=== PATIENT | male | born 1945 | race Caucasian/White ===

== ENCOUNTER 2023-03-26 10:11 | Emergency (ER) | payer MEDICARE, SELFPAY ==
--- NOTE | ~2023-03-26 | CT_ITS ---
Non-contrast Head CT History: Headache COMPARISON: 02/25/2018 Technique: Axial non-contrast imaging of the brain was performed. Dose reduction technique was used on this scan by utilizing automated exposure control and iterative reconstruction technique. The dose -length product (DLP) was 605.33 mGy-cm. Findings: There is no evidence of intracranial hemorrhage, mass lesion, or acute infarct. Brain par enchyma appears normal. The ventricles and subarachnoid spaces are normal in size. The calvarium ap pears normal. The visualized paranasal sinuses and mastoid air cells are clear. Impression: No significant abnormality seen. Reviewed, dictated and finalized at location . Impression: No significant abnormality seen.
[2023-03-26 10:55] VITALS: BP 164/65; PULSE 80; RESP 20; TEMP 36.3; O2SAT 100
--- NOTE | 2023-03-26 12:37 | ED.HA ---
HPI - Headache General Chief Complaint: Headache Stated Complaint: left sided huston/hx subdural hematoma Time Seen by Provider: 03/26/23 11:09 History of Present Illness HPI Narrative: Patient is a 77-year-old male who presents ER with headache. Ongoing over the last week. Left-sided and throbbing. Worse with reading. Reports he is been reading news articles on his new flip phone. He has been told by an eye doctor in the past that he may need cataracts. He does have history of spontaneous subdural hemorrhage back in 2018 and has been concerned. At that time he had been seeing flashers and was having headache but he has no visual changes at this time. No trauma. He does continue to take a blood thinner due to his history of DVT. Related Data Allergies Allergy/AdvReac Type Severity Reaction Status Date / Time No Known Allergies Allergy Unknown Verified 01/17/18 04:37 Review of Systems Review of Systems: All systems reviewed & are unremarkable except as noted in HPI and below Constitutional: Constitutional: Denies chills, Denies fatigue and Denies fever(s) ENT: Denies dizziness, Denies nasal congestion and Denies sore throat Gastrointestinal: Gastrointestinal: Denies nausea and Denies vomiting Neurologic: Denies syncope, Reports headache(s), Denies focal weakness and Denies numbness PMFSH Past Medical History Medical History (Updated 03/26/23 @ 12:48 by Moi House MD) Atrial fibrillation DVT (deep venous thrombosis) Subdural hemorrhage Surgical History Surgical History (Updated 03/26/23 @ 12:47 by Moi House MD) History of surgery on lower extremity Exam Narrative: GENERAL: Well-appearing, well-nourished, and in no acute distress. HEAD: Normocephalic, atraumatic. EYES: PERRL and EOMI. ENT: Mucous membranes moist. Normal tympanic membranes bilaterally. NECK: Supple. CHEST: Clear to auscultation. No respiratory distress. HEART: Regular rate and rhythm. Normal peripheral pulses. EXTREMITIES: Normal range of motion. No edema. NEURO: Clear speech, no facial droop, ambulates with steady gait. Alert and oriented x3. PSYCH: Normal mood and affect. Course Course Emergency Course: Patient resting comfortably. Informed of results. Discharge home. Vital Signs Vital signs: Vital Signs Temperature 97.4 F L 03/26/23 10:55 Pulse Rate 80 03/26/23 10:55 Respiratory Rate 20 03/26/23 10:55 Blood Pressure 164/65 H 03/26/23 10:55 Pulse Oximetry 100 03/26/23 10:55 Oxygen Delivery Room Air 03/26/23 10:55 Temperature 97.4 F L 03/26/23 10:55 Pulse Rate 80 03/26/23 10:55 Respiratory Rate 20 03/26/23 10:55 Blood Pressure 164/65 H 03/26/23 10:55 Pulse Oximetry 100 03/26/23 10:55 Oxygen Delivery Room Air 03/26/23 10:55 MDM - Headache Imaging Data Radiologist's impression: ITS Impressions Head CT 03/26/23 11:44 Impression: No significant abnormality seen. Discharge Plan Discharge Clinical Impression: Generalized headache Patient Disposition: Home, Self-Care Condition: Stable Instructions: General Headache (ED) Additional Instructions: Return the ER if you lose consciousness, you have sudden onset weakness to an arm or leg, you have additional concerns. Follow-up with your eye doctor. Follow-up/Referrals: Julian,Rosendo Li MD [Primary Care Provider] - 1 Week
== END 2023-03-26 12:49 | disposition home or self-care (01) ==
PROVIDERS: Emergency Provider Emergency Medicine; PCP Internal Medicine
DX: R51.9 Headache, unspecified (principal); I48.91 Unspecified atrial fibrillation; Z86.718 Personal history of other venous thrombosis and embolism; Z79.01 Long term (current) use of anticoagulants
CPT/HCPCS: 70450; 99284

== ENCOUNTER 2023-12-14 09:00 | Emergency (ER) | payer MEDICARE, SELFPAY ==
[2023-12-14] VITALS (7 sets, daily range): BP systolic 127–170; BP diastolic 61–80; PULSE 66–80; RESP 14–27; TEMP 36.4; O2SAT 97–100
--- NOTE | ~2023-12-14 | CT_ITS ---
EXAMINATION: CTA BRAIN/CAROTID DATE: 12/14/2023 INDICATION: Subjective visual disturbance TECHNIQUE: Computed tomographic angiography (CTA) of the head and neck was performed with 100 mL Omni paque-350 intravenous contrast. Multiplanar reconstructions and maximum intensity projection 3D-recon structions of the carotid arteries and of the intracranial arteries were created by the technologist on a separate workstation. Automated exposure control and iterative reconstruction technique were emp loyed.The dose-length product was 1150.19 mGy-cm. COMPARISON: None. FINDINGS: Carotid arteries: There is 10% stenosis of the right carotid bulb relative to normal distal artery lumen diameter (NASC ET criteria). There is 50% stenosis of the left carotid bulb relative to normal distal artery lumen d iameter. Bilateral vertebral arteries are codominant. Small amount of atherosclerotic calcification w ithout hemodynamically significant stenosis at the origin of the left vertebral artery. Mild dependen t atelectasis. Visualized upper lungs. Cervical soft tissues are unremarkable. There are bridging ost eophytes at multiple levels the cervical and upper thoracic spine consistent with diffuse idiopathic skeletal hyperostosis (DISH). Intracranial arteries The intracranial left vertebral artery is dominant. Small amount of atherosclerotic calcification wit hout hemodynamic significant stenosis at the bilateral carotid siphons. There is no hemodynamically s ignificant stenosis in the vertebral, basilar and internal carotid arteries. There are no aneurysms i dentified. Both A1 and P1 segments are patent. Cerebral arterial arborization appears symmetric. IMPRESSION: 1. 10% stenosis of the right carotid bulb relative to normal distal artery lumen diameter (NASCET cri teria). 2. 50% stenosis of the left carotid bulb relative to normal distal artery lumen diameter. 3. Unremarkable cerebral CT angiogram with no hemodynamic significant stenosis or aneurysm. Reviewed, dictated and finalized at location B. IMPRESSION: 1. 10% stenosis of the right carotid bulb relative to normal distal artery lume n diameter (NASCET criteria). 2. 50% stenosis of the left carotid bulb relative to normal distal artery lumen diameter. 3. Unremarkable cerebral CT angiogram with no hemodynamic significant stenosis or aneurysm.
--- NOTE | ~2023-12-14 | CT_ITS ---
EXAMINATION: CT brain wo con DATE: 12/14/2023 INDICATION: Vision problems TECHNIQUE: Computed tomography (CT) of the head was performed without intravenous contrast. Sagittal and coronal reconstructions were performed. The mA was adjusted according to patient size. Iterative reconstruction technique was employed. The dose-length product was 605.33 mGy-cm. COMPARISON: head CT dated 03/26/2023 FINDINGS: No acute intracranial hemorrhage, acute infarction or abnormal extra axial fluid collection. There is mild scattered white matter hypoattenuation consistent with chronic small vessel ischemic di sease. Ventricles are normal and symmetric. No mass/mass effect. Prominent mucosal thickening with n ear-complete opacities in the visualized portion of the right maxillary sinus and additional mild muc osal thickening in the right ethmoid sinus.. The orbits and mastoid air cells are normal. IMPRESSION: 1. Mild scattered white matter hypoattenuation consistent with chronic small vessel ischemic disease. No acute intracranial process. 2. Prominent right maxillary sinus disease. Reviewed, dictated and finalized at location B. IMPRESSION: 1. Mild scattered white matter hypoattenuation consistent with chronic small ve ssel ischemic disease. No acute intracranial process. 2. Prominent right maxillary sinus disease.
--- NOTE | ~2023-12-14 | XR_ITS ---
EXAMINATION: XR chest 1V DATE: 12/14/2023 11:04 INDICATION: Right eye blurriness. TECHNIQUE: A single frontal view of the chest was obtained. COMPARISON: Chest single view 07/17/2018 FINDINGS: There is mild atelectasis in right lower lung zone. No pleural effusion or pneumothorax. Th e heart size is normal. IMPRESSION: 1. Mild atelectasis in right lower lung zone. Reviewed, dictated and finalized at location A.
--- NOTE | 2023-12-14 09:05 | ECG_ITS ---
Measurements Intervals [place] Rate: 66 P: 35 PA: 294 QRS: 28 QRSD: 100 T: 64 QT: 408 QTc: 429 Interpretive Statements SINUS RHYTHM WITH FIRST DEGREE AV BLOCK INCOMPLETE RIGHT BUNDLE BRANCH BLOCK BORDERLINE ST-T WAVE ABNORMALITY- HIGH LATERAL LEADS BASELINE ARTIFACT- I, II, V5 BORDERLINE ECG NO PREVIOUS ECG AVAILABLE FOR COMPARISON Electronically Signed On 12-14-2023 11:11:13 CDT by Joe Koroma D.O.
[2023-12-14 09:20] LABS: Basophils Percent Auto 0.6 % (0.2-1.2); Eosinophils Absolute Auto 0.1 K/mm3 (0-0.3); Eosinophils Percent Auto 1.9 % (0-4.4); Hematocrit 45.2 % (42.0-52.0); Hemoglobin 14.8 g/dL (14.0-18.0); Immature Granulocyte Absolute 0.01 K/mm3 (0.00-0.031); Immature Granulocyte Percent A 0.2 % (0-0.5); Lymphocytes Absolute Auto 2.47 K/mm3 (0.9-3.2); Lymphocytes Percent Auto 38.5 % (18.3-44.2); Mean Corpuscular HGB Conc 32.7 g/dl (32-36); Mean Corpuscular Volume 97.6 fl (80-100); Mean Platelet Volume 8.7 fl (7.4-10.4); Monocytes Absolute Auto 0.5 K/mm3 (0.1-0.6); Monocytes Percent Auto 7.2 % (2.6-8.5); Neutrophils Absolute Auto 3.3 K/mm3 (1.3-6.7); Neutrophils Percent Auto 51.6 % (45.5-73.1); Platelet Count Result 222 k/mm3 (150-375); Red Blood Count 4.63 M/mm3 (4.6-6.20); Red Cell Distribution Width 13.4 % (11.5-14.5); White Blood Count 6.4 K/mm3 (4.5-10.0)
[2023-12-14 09:30] LABS: Alanine Aminotransferase 37 U/L (6-50); Albumin Level 4.5 g/dL (3.5-5.1); Alkaline Phosphatase 84 U/L (38-126); Anion Gap 6 mmol/L (8-16); Aspartate Amino Transferase 42 U/L (17-59); Bilirubin,Total 1.3 mg/dL (0.2-1.3); Blood Urea Nitrogen 11 mg/dL (9-20); Calcium 9.5 mg/dL (8.4-10.2); Carbon Dioxide 26 mmol/L (22-30); Chloride 106 mmol/L (98-107); Estimated Glomerular Filt Rate > 60; Glucose 188 mg/dL (65-110); Potassium 3.8 mmol/L (3.4-5.0); Sodium 138 mmol/L (137-145)
[2023-12-14 09:42] LABS: INR 1.1; Prothrombin Time 14.5 Seconds (11.1-14.7)
[2023-12-14 09:43] LABS: Partial Thromboplastin Time 31.3 Seconds (22.3-36.8); Troponin I < 0.012 ng/mL (0.000-0.034)
--- NOTE | 2023-12-14 10:33 | ED.GENADULT ---
HPI - General Adult General Chief complaint: Eye Problems Stated complaint: sudden vision problems, eye redness Time Seen by Provider: 12/14/23 09:09 Source: patient Mode of arrival: ambulatory Limitations: no limitations History of Present Illness HPI narrative: 78-year-old with history of subdural bleed, AFib on Eliquis twice a day here with a complaint of blurred vision on the right side. Patient states that it started about 15 minutes ago while he was in the kitchen. He denies any headache, weakness or chest pain. Onset (ago): minute(s) (15) Location: eyes (right) Radiation: non-radiation Severity: moderate Relieving factors: none Exacerbating factors: none Associated symptoms: denies other symptoms Related Data Allergies Allergy/AdvReac Type Severity Reaction Status Date / Time No Known Allergies Allergy Unknown Verified 01/17/18 04:37 Review of Systems Review of Systems: All systems reviewed & are unremarkable except as noted in HPI and below Constitutional: Constitutional: Reports no additional constitutional complaints Eyes: Eyes: Reports as per HPI ENT: Reports system reviewed and no additional complaints, except as documented Cardiovascular: Cardiovascular: Reports no additional cardiovascular complaints Respiratory: Respiratory: Reports no additional respiratory complaints Musculoskeletal: Musculoskeletal: Reports no additional musculoskeletal complaints Integumentary/Breasts: Skin/Breast: Reports system reviewed and no additional complaints, except as docu PMFSH Past Medical History Medical History Atrial fibrillation DVT (deep venous thrombosis) Subdural hemorrhage Surgical History Surgical History History of surgery on lower extremity Exam Narrative: GENERAL: Well-appearing, well-nourished, and in no acute distress. HEAD: Normocephalic, atraumatic. EYES: PERRLA and EOMI. Hyphema on the right. No peripheral loss of vision. ENT: Nares clear, no rhinorrhea or epistaxis. Mucous membranes moist. NECK: Supple. CHEST: Clear to auscultation. No respiratory distress. HEART: Regular rate and rhythm. No murmur heard. Normal peripheral pulses. ABDOMEN: Soft, nontender, nondistended, normal active bowel sounds. EXTREMITIES: Normal range of motion. No edema. SKIN: Warm, dry, no rash. NEURO: No focal deficits. Alert and oriented x3. PSYCH: Normal mood and affect. Course Course Emergency Course: For CT of the head and CTA buttock negative his vision has improved. And recommended him to continue Eliquis at this time. 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 He wants to go home. His primary doctor is [facility] [place] recommended him to follow up with him in the next week. Vital Signs Vital signs: Vital Signs Temperature 36.4 C 12/14/23 09:20 Pulse Rate 80 12/14/23 09:20 Respiratory Rate 16 12/14/23 09:20 Blood Pressure 170/65 H 12/14/23 09:20 Pulse Oximetry 100 12/14/23 09:20 Oxygen Delivery Room Air 12/14/23 09:20 Temperature 36.4 C 12/14/23 09:20 Pulse Rate 80 12/14/23 09:20 Respiratory Rate 16 12/14/23 09:20 Blood Pressure 170/65 H 12/14/23 09:20 Pulse Oximetry 100 12/14/23 09:20 Oxygen Delivery Room Air 12/14/23 09:20 Medical Decision Making Vital Signs Vital Signs: Vital Signs Temperature 36.4 C 12/14/23 09:20 Pulse Rate 80 12/14/23 09:20 Respiratory Rate 16 12/14/23 09:20 Blood Pressure 170/65 H 12/14/23 09:20 Pulse Oximetry 100 12/14/23 09:20 Oxygen Delivery Room Air 12/14/23 09:20 Temperature 36.4 C 12/14/23 09:20 Pulse Rate 80 12/14/23 09:20 Respiratory Rate 16 12/14/23 09:20 Blood Pressure 170/65 H 12/14/23 09:20 Pulse Oximetry 100 12/14/23 09:20 Oxygen Delivery Room Air 12/14/23 09:20 Lab Data
[2023-12-17 10:26] LABS: Estimated CRCL calculation 72 ml/min; Estimated Glomerular Filt Rate > 60
== END 2023-12-14 11:00 | disposition home or self-care (01) ==
PROVIDERS: Emergency Provider Family Medicine
DX: H53.8 Other visual disturbances (principal); I48.91 Unspecified atrial fibrillation; Z86.718 Personal history of other venous thrombosis and embolism; I44.0 Atrioventricular block, first degree; I45.10 Unspecified right bundle-branch block; R94.31 Abnormal electrocardiogram [ECG] [EKG]; I65.23 Occlusion and stenosis of bilateral carotid arteries; J32.0 Chronic maxillary sinusitis; Z79.01 Long term (current) use of anticoagulants
CPT/HCPCS: 36415; 70450; 70496; 70498; 71045; 80053; 82565; 84484; 85025; 85610; 85730; 93005; 99284; Q9967